=== PATIENT | male | born 2000 | race Caucasian/White ===

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

== ENCOUNTER 2023-04-29 23:22 | Emergency (ER) | payer OTHER ==
[2023-04-29 23:26] VITALS: BP 145/72; PULSE 90; RESP 16; TEMP 98.5; BMI 28.3
== END 2023-04-30 00:42 | disposition home or self-care (01) ==
LOC: JERFT 23:22
DX: S60.511A Abrasion of right hand, initial encounter (principal); M79.641 Pain in right hand; R22.31 Localized swelling, mass and lump, right upper limb; V89.2XXA Person injured in unspecified motor-vehicle accident, traffic, initial encounter
CPT/HCPCS: 70450-TC; 73110-TC-RT-FY; 73130-TC-RT-FY; 99284-25